=== PATIENT | male | born 1985 | race Caucasian/White ===

== ENCOUNTER 2018-02-14 17:38 | Emergency (ER) | payer SELFPAY ==
[2018-02-14 17:39] VITALS: BP 147/71; PULSE 86; RESP 17; TEMP 37; O2SAT 100; BMI 37.0
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
--- NOTE | 2018-02-14 18:31 | ED.DEP ---
ED Disposition - Plan for ED Patient: Disposition: Home or Assisted Living Chief Complaint: Back Instructions: ED Sprain Strain Lumbar Prescriptions: Hydrocodone Bitart/Apap 5-325 [[place] 5MG-325MG] 1 tablet PO Q6H PRN PRN 3 Days #10 tablet PRN Reason: Pain Naproxen [Naprosyn] 500 mg PO BID PRN PRN #20 tablet PRN Reason: Pain Cyclobenzaprine [Flexeril] 10 mg PO TID PRN #20 tablet PRN Reason: Muscle Spasm Referrals: Vasu Villalobos MD [Primary Care Provider] - 1 Week if not improving
--- NOTE | 2018-02-14 18:35 | DCINST.ED_ITS ---
ED Disposition - Plan for ED Patient: Disposition: Home or Assisted Living Chief Complaint: Back Instructions: ED Sprain Strain Lumbar Prescriptions: Hydrocodone Bitart/Apap 5-325 [[place] 5MG-325MG] 1 tablet PO Q6H PRN PRN 3 Days #10 tablet PRN Reason: Pain Naproxen [Naprosyn] 500 mg PO BID PRN PRN #20 tablet PRN Reason: Pain Cyclobenzaprine [Flexeril] 10 mg PO TID PRN #20 tablet PRN Reason: Muscle Spasm Referrals: Vasu Villalobos MD [Primary Care Provider] - 1 Week if not improving
[2018-02-14] MEDS: Naproxen 500 MG Tablet PO (18:39)
--- OUTSIDE RECORDS SUMMARY | 2018-05-21 07:37 | XMS RPT_ITS ---
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 CPAP @ 7 cm of water with humidification. Mask (per patient preference) optional chin strap (if indicated) , filters, tubing, humidifier and lifetime supplies. CPAP Initiate CPAP @ 7 cm of water with humidification. Mask (per patient preference) optional chin strap (if indicated) , filters, tubing, humidifier and lifetime supplies. albuterol HFA (PROAIR HFA) 90 mcg/actuation inhaler Inhale 2 Puffs as instructed every 4 hours as needed. benzonatate (TESSALON PERLE) 100 mg capsule Take 1 capsule by mouth three times daily as needed. guaiFENesin (MUCINEX) 600 mg 12 hr tablet Take 2 tablets by mouth twice daily. ranitidine 150 mg tablet Take 1 tablet by mouth twice daily. FAMILY HISTORY Problem Relation Age of Onset - Hypertension Father - Hypertension Maternal Grandfather - Heart Maternal Grandfather - Cancer Maternal Grandfather prostate - Diabetes Maternal Grandfather - Hypertension Paternal Grandfather - Diabetes Paternal Grandfather - Heart Maternal Grandmother - Cancer Maternal Grandmother breast - Diabetes Maternal Grandmother - Hypertension Mother - Diabetes Paternal Grandmother Social History Substance Use Topics - Smoking status: Former Smoker Types: Cigarettes Quit date: 02/21/2008 - Smokeless tobacco: Never Used Comment: was smoking rarely - Alcohol use Yes Comment: Rarely Objective Physical Exam Constitutional: He is well-developed, well-nourished, and in no distress. HENT: Right Ear: Tympanic membrane, external ear and ear canal normal. Left Ear: There is swelling and tenderness. Decreased hearing is noted. Cardiovascular: Normal rate. Pulmonary/Chest: Effort normal. Skin: Skin is warm and dry. Rash noted. Nursing note and vitals reviewed. ASSESSMENT/PLAN: 1. Acute swimmer's ear of left side - ICD9: 380.12, ICD10: H60.332 - UIKQZJYA-RVAHKAECX-XZLJJLQYO 3.5 MG-10,000 UNIT/ML-1 % EAR DROPS,SUSP - IBUPROFEN 600 MG TABLET - Follow-up with your PCP in 3-5 days if symptoms have not improved or sooner if symptoms worsen - Discussed red flags and need for immediate medical evaluation if any occur. - Discussed supportive care treatment with fluids, rest and analgesia. - Discussed expected course of illness Kate Murphy APRN.CNP CNOV Observed: 09/19/2017 Status: COMPLETED Source: [place] 3:15 PM [facility] REPOSITORY Office Visit ([facility]) SANTIAGO FARNSWORTH ([id number]) 1985 M Date Time Provider Department 09/19/17 3:15 PM KATE MURPHY ([facility]) [facility] During your visit today, we recorded the following information about you: Temperature Pulse Respiration Blood pressure 97.5 degrees 70/minute 16/minute 122/80 Weight 120.5 kg Kate Murphy APRN.CNP 09/19/2017 4:04 PM Signed Subjective HPI Santiago Menendez Daja is a 32 year old male who presents with left ear pain for the past 2-3 days. He denies any recent URI symptoms. He has been swimming recently. He has taken ibuprofen for pain. He currently rates his pain a 5/10. Review of Systems Constitutional: Negative. Negative for fever. HENT: Positive for ear pain and hearing loss. Negative for congestion, ear discharge and sore throat. Respiratory: Negative for cough. Skin: Negative. BP 122/80 Pulse 70 Temp 36.4 ?C (97.5 ?F) (Tympanic) Resp 16 Wt 120.5 kg (265 lb 9.6 oz) BMI 37.06 kg/m? PAST MEDICAL HISTORY Diagnosis Date - GERD (gastroesophageal reflux disease) - Obesity (BMI 35.0-39.9 without comorbidity) - Obstructive sleep apnea syndrome, mild - Restless legs PAST SURGICAL HISTORY Procedure Laterality Date - NONE ALLERGIES Cinnamon; Tetanus Vaccines And Toxoid MEDICATIONS CPAP Initiate CPAP @ 7 cm of water with humidification. Mask (per patient preference) optional chin strap (if indicated) , filters, tubing, humidifier and lifetime supplies. CPAP Initiate CPAP @ 7 cm of water with humidification. Mask (per patient preference) optional chin strap (if indicated) , filters, tubing, humidifier and lifetime supplies. albuterol HFA (PROAIR HFA) 90 mcg/actuation inhaler Inhale 2 Puffs as instructed every 4 hours as needed. benzonatate (TESSALON PERLE) 100 mg capsule Take 1 capsule by mouth three times daily as needed. guaiFENesin (MUCINEX) 600 mg 12 hr tablet Take 2 tablets by mouth twice daily. ranitidine 150 mg tablet Take 1 tablet by mouth twice daily. FAMILY HISTORY Problem Relation Age of Onset - Hypertension Father - Hypertension Maternal Grandfather - Heart Maternal Grandfather - Cancer Maternal Grandfather prostate - Diabetes Maternal Grandfather - Hypertension Paternal Grandfather - Diabetes Paternal Grandfather - Heart Maternal Grandmother - Cancer Maternal Grandmother breast - Diabetes Maternal Grandmother - Hypertension Mother - Diabetes Paternal Grandmother Social History Substance Use Topics - Smoking status: Former Smoker Types: Cigarettes Quit date: 02/21/2008 - Smokeless tobacco: Never Used Comment: was smoking rarely - Alcohol use Yes Comment: Rarely Objective Physical Exam Constitutional: He is well-developed, well-nourished, and in no distress. HENT: Right Ear: Tympanic membrane, external ear and ear canal normal. Left Ear: There is swelling and tenderness. Decreased hearing is noted. Cardiovascular: Normal rate. Pulmonary/Chest: Effort normal. Skin: Skin is warm and dry. Rash noted. Nursing note and vitals reviewed. ASSESSMENT/PLAN: 1. Acute swimmer's ear of left side - ICD9: 380.12, ICD10: H60.332 - XVOGPUZH-ASTYSBTMW-QAYCDLAWE 3.5 MG-10,000 UNIT/ML-1 % EAR DROPS,SUSP - IBUPROFEN 600 MG TABLET - Follow-up with your PCP in 3-5 days if symptoms have not improved or sooner if symptoms worsen - Discussed red flags and need for immediate medical evaluation if any occur. - Discussed supportive care treatment with fluids, rest and analgesia. - Discussed expected course of illness SUSSY Flood APRN.CNP 09/19/2017 3:31 PM Signed Swimmer's Ear What is swimmer's ear? Swimmer's ear (otitis externa) is an infection of the skin of the cartilaginous portion of the ear canal. Because the ear canal is dark, warm and capable of retaining water, it makes a perfect culture chamber for the growth of bacteria or fungus. The disease starts as a local infection in the ear canal (acute otitis externa) and can spread to cartilage and bone of the ear canal. When this occurs it is called malignant external otitis. Facial nerve paralysis can result when the disease progresses this far. What are the symptoms of swimmer's ear? Pain Ear blockage Foul smelling discharge Hearing loss Itching What conditions cause swimmer's ear? Warm temperatures and high humidity are more likely to promote infection in the ear canal. Trapping of water within the ear canal, trauma to the skin of the ear canal (from cotton swab abuse or hearing aid use), loss of the natural protection of ear wax or exposure to contaminated water may also cause otitis externa. How is swimmer's ear treated? Cleaning the ear canal of accumulated debris is the first priority of treatment. Avoiding water exposure and the use of ear drops usually suffices to stop the infection. Occasionally, systemic antibiotics are necessary. What can I do to prevent swimmer's ear? The use of an alcohol lavage (cleansing wash) in the ear canal after swimming or when hearing aids are removed for the day can significantly reduce the occurrence of skin maceration (tendency of the skin to become worn down, weakened or raw) which leads to infection. The alcohol lavage should consist of one quart of isopropyl (rubbing) alcohol and an ounce (shot glass) of acetic acid (white vinegar). When should I see a specialist? If your infection fails to respond to antibiotic drops, or if you have lost your hearing, you may need to have the ear cleaned and treated by a specialist. Sometimes it is necessary to place a small sponge, called a wick, into the ear canal. This facilitates the delivery of medicated ear drops into the ear when the ear canal is too swollen to permit easy entry. Referring Provider: SELF [200] Allergies As of Date: 09/19/2017 Noted Allergy Reaction CINNAMON 01/28/2012 12 - Shortness of Breath TETANUS VACCINES AND TOXOID 10/06/2013 14 - Other: See Comments Comments: Swelling at injection site Date Reviewed: 09/19/2017 Reviewed by: Kate ([facility]) Katherine - Fully Assessed Reason for Visit: left ear pain [Other] Cmt: x 2-3 days Primary Visit Diagnosis:Acute swimmer's ear of left side [H60.332] Order(s):wynpesjp-kfigxcbgx-ryxmcdnltmsaib (CORTISPORIN) 3.5-10,000-1 mg/mL-unit/mL-% otic suspensionUse 3 Drops in both ears four times daily.Disp: 10 mLRfl: 0 ibuprofen (MOTRIN) 600 mg tabletTake 1 tablet by mouth every 6 hours as needed for Pain.Disp: 30 tabletRfl: 0 Prescriptions as of 09/19/2017 Sig: ORFIUNJV-VTQBUSQCQ-DXPVJLPSW * Use 3 Drops in both ears four* IBUPROFEN 600 MG TABLET Take 1 tablet by mouth every * CPAP Initiate CPAP @ 7 cm of water* CPAP Initiate CPAP @ 7 cm of water* ALBUTEROL SULFATE HFA 90 MCG/* Inhale 2 Puffs as instructed * Patient not taking: Reported on 09/19/2017 BENZONATATE 100 MG CAPSULE Take 1 capsule by mouth three* Patient not taking: Reported on 09/19/2017 GUAIFENESIN ER 600 MG TABLET,* Take 2 tablets by mouth twice* Patient not taking: Reported on 09/19/2017 RANITIDINE 150 MG TABLET Take 1 tablet by mouth twice * Patient not taking: Reported on 09/19/2017 Problem List As Of Date 09/19/2017 Noted Resolved Restless Legs [G25.81] INVALID FOR* Elevated BP [CUH4998] INVALID FOR* Obstructive sleep apnea syndrome, mild [G47.33] Obesity (BMI 35.0-39.9 without comorbidity) [E6* GERD (gastroesophageal reflux disease) [K21.9] Other instructions from your clinician: Swimmer's Ear What is swimmer's ear? Swimmer's ear (otitis externa) is an infection of the skin of the cartilaginous portion of the ear canal. Because the ear canal is dark, warm and capable of retaining water, it makes a perfect culture chamber for the growth of bacteria or fungus. The disease starts as a local infection in the ear canal (acute otitis externa) and can spread to cartilage and bone of the ear canal. When this occurs it is called malignant external otitis. Facial nerve paralysis can result when the disease progresses this far. What are the symptoms of swimmer's ear? Pain Ear blockage Foul smelling discharge Hearing loss Itching What conditions cause swimmer's ear? Warm temperatures and high humidity are more likely to promote infection in the ear canal. Trapping of water within the ear canal, trauma to the skin of the ear canal (from cotton swab abuse or hearing aid use), loss of the natural protection of ear wax or exposure to contaminated water may also cause otitis externa. How is swimmer's ear treated? Cleaning the ear canal of accumulated debris is the first priority of treatment. Avoiding water exposure and the use of ear drops usually suffices to stop the infection. Occasionally, systemic antibiotics are necessary. What can I do to prevent swimmer's ear? The use of an alcohol lavage (cleansing wash) in the ear canal after swimming or when hearing aids are removed for the day can significantly reduce the occurrence of skin maceration (tendency of the skin to become worn down, weakened or raw) which leads to infection. The alcohol lavage should consist of one quart of isopropyl (rubbing) alcohol and an ounce (shot glass) of acetic acid (white vinegar). When should I see a specialist? If your infection fails to respond to antibiotic drops, or if you have lost your hearing, you may need to have the ear cleaned and treated by a specialist. Sometimes it is necessary to place a small sponge, called a wick, into the ear canal. This facilitates the delivery of medicated ear drops into the ear when the ear canal is too swollen to permit easy entry. Prescriptions ordered this encounter Disp Refills Start End SOFAUJPK-UGZWFYYMI-YUQDQKXZF 3.5 MG-* 10 mL 0 09/19/2017 Route: BOTH EARS Sig: Use 3 Drops in both ears four times daily. IBUPROFEN 600 MG TABLET 30 t* 0 09/19/2017 Route: ORAL Sig: Take 1 tablet by mouth every 6 hours as needed for Pain. Letter Text Kate Murphy APRN.[facility] Urgent Care [address] [facility] [address] Dept: [phone] 09/19/2017 Santiago Farnsworth [address] [facility] [address] To Whom it May Concern: This is to certify that Santiago Farnsworth was seen at our office for medical care. Santiago may return to work on 09/20/2017. If you have any questions please feel free to call. Sincerely: Kate Murphy APRN.[facility] Encounter Status:Closed by KATE MURPHY on 09/19/17 CNPN Observed: 06/07/2017 Status: COMPLETED Source: [place] 12:00 AM [facility] RE[facility]IT[facility] SANTIAGO FARNSWORTH ([id number]) 1985 M Date Time Provider Department 06/07/17 RENAY LARA) [facility] During your visit today, we recorded the following information about you: Angelia Stein CMA, MARYCARMEN 06/07/2017 1:09 PM Signed Patient was in today, stated he didn't hand picker the CPAP last time because he changed insurances, he has since changed insurance again ANDamp; gave information to PSR to update. He would like to start the process over. Please advise. JONEL Chamberlain MD 06/07/2017 1:15 PM Signed New order placed for CPAP machine based on pap titration. Will need to send rx to supply company as instructed by insurance. Angelita Calvo LPN 06/07/2017 3:48 PM Signed Spoke with pt gave information provided. Pt voices understanding. States he needs script sent to [facility]. Faxed all information [facility] to [facility]. Asmita Jamal VERGARA 06/07/2017 3:50 PM Signed orders faxed. Allergies As of Date: 06/07/2017 Noted Allergy Reaction CINNAMON 01/28/2012 12 - Shortness of Breath TETANUS VACCINES AND TOXOID 10/06/2013 14 - Other: See Comments Comments: Swelling at injection site Date Reviewed: 12/31/2016 Reviewed by: Jeannette Guadalupe LPN - Fully Assessed Reason for Visit: CPAP [Other] Order(s):CPAPInitiate CPAP @ 7 cm of water with humidification. Mask (per patient preference) optional chin strap (if indicated) , filters, tubing, humidifier and lifetime supplies.Disp: 1 DeviceRfl: 0 Prescriptions as of 06/07/2017 Sig: CPAP Initiate CPAP @ 7 cm of water* CPAP Initiate CPAP @ 7 cm of water* ALBUTEROL SULFATE HFA 90 MCG/* Inhale 2 Puffs as instructed * BENZONATATE 100 MG CAPSULE Take 1 capsule by mouth three* GUAIFENESIN ER 600 MG TABLET,* Take 2 tablets by mouth twice* RANITIDINE 150 MG TABLET Take 1 tablet by mouth twice * Problem List As Of Date 06/07/2017 Noted Resolved Restless Legs [G25.81] INVALID FOR* Elevated BP [AGJ0702] INVALID FOR* Obstructive sleep apnea syndrome, mild [G47.33] Obesity (BMI 35.0-39.9 without comorbidity) [E6* GERD (gastroesophageal reflux disease) [K21.9] Prescriptions ordered this encounter Disp Refills Start End CPAP 1 De* 0 06/07/2017 Class: Print RX Sig: Initiate CPAP @ 7 cm of water with humidification. Mask (per patient preference) optional chin strap (if indicated) , filters, tubing, humidifier and lifetime supplies. Encounter Status:Closed by ANGELITA CALVO LPN on 06/07/17 EMERGENCY REPORT Observed: 05/27/2017 Status: F Source: [place] 5:42 AM [facility] EMERGENCY DEPARTMENT REPORT NAME NUMBER SEX AGE ADMIT DISC TYPE MED.RECORD# DAJA Menendez [id number] M 32 05/09/17 05/09/17 E.R. [id number] ROOM:ER-A DATE OF :1985 PHYSICIAN NO.:[id number] PHYSICIAN NAME:E-Sign: Dr. Genaro Cash D.O. PHYSICIAN:SUNNY RAUSCH FAMILY PHYSICIAN: SUNNY RAUSCH ADDENDUM EMERGENCY DEPARTMENT COURSE AND TREATMENT: X-rays were obtained of the left forearm. No fracture noted. No dislocation. No posterior fat pad at the elbow. Patient does move his elbow good in flexion and extension. Moves the left wrist good in flexion and extension. Good left radial pulse. Has good sensation to light touch all digits of the left hand. Cap refill less than 2 seconds. I am going to place him in an Arash wrap to the left forearm proximally where his tenderness and mild swelling is. I advised him to rest with no heavy lifting or other exertional activities. Prescription for ibuprofen 800 mg 1 p.o. three times daily, dispense #20 with no refill and he is to follow up with his primary care physician Dr. Espinoza in 2-4 days for evaluation. If his symptoms become worse or any other problems develop return here to the emergency department. DIAGNOSIS: Left forearm contusion. D: Genaro Cash DO TD: 23:42 JOB #: [id number] Electronically signed by: E-Sign: Dr. Genaro Cash D.O. 05/16/17 08:33 Transcribed by: janie 05/10/2017 20:23 EMERGENCY ROOM REPORT DAJA SANTIAGO Menendez 1 [facility] EMERGENCY DEPARTMENT REPORT NAME NUMBER SEX AGE ADMIT DISC TYPE MED.RECORD# DAJA Menendez [id number] M 32 05/09/17 05/09/17 E.R. [id number] ROOM:ER-A DATE OF :1985 PHYSICIAN NO.:[id number] PHYSICIAN NAME:E-Sign: Dr. Genaro Cash D.O. PHYSICIAN:SUNNY RAUSCH FAMILY PHYSICIAN: SUNNY RAUSCH EMERGENCY ROOM REPORT DAJA Menendez 2 EMERGENCY REPORT Observed: 05/27/2017 Status: F Source: [place] 5:42 AM [facility] EMERGENCY DEPARTMENT REPORT NAME NUMBER SEX AGE ADMIT DISC TYPE MED.RECORD# DAJA Menendze [id number] M 32 05/09/17 05/09/17 Jorge.RGeorge [id number] [facility] DATE OF :1985 PHYSICIAN NO.:[id number] PHYSICIAN NAME:E-Sign: Dr. Genaro Cash D.O. PHYSICIAN:SUNNY RAUSCH FAMILY PHYSICIAN: SUNNY RAUSCH HISTORY OF PRESENT ILLNESS: This is a 32-year-old white male complaining of left forearm pain and swelling after he fell onto his left forearm this morning around 11 a.m. while at [employer] practice. He said he went to work and throughout the day the left forearm started to become more painful and more swollen so he presents here for an evaluation. He does have a tournament coming up so he wants to make sure he can participate in the tournament. He denies striking his head in the fall. There was no loss of consciousness. He has complained of some right great pain, but he does not want that x-rayed. PAST MEDICAL HISTORY: Denied. ALLERGIES: No known drug allergies. SOCIAL HISTORY: He is not a smoker. Lives at home with his family. Admits to occasional alcohol use. REVIEW OF SYSTEMS: Positive for joint pain, but negative for everything else. The patient denies any chest pain, shortness of breath, cough, sputum, wheezing, abdominal pain, nausea, vomiting, diarrhea, constipation, melena or hematochezia, headaches, numbness, unsteady gait, weakness, neck or back pain, headache, blurred or double vision. Further review of systems negative. PHYSICAL EXAMINATION: The patient is alert and oriented x3. Presently appears in no acute distress. HEENT: Head appears atraumatic. Pupils are equal and reactive to light. Red reflex intact bilaterally. Extraocular muscles intact. No conjunctival injection. Nose: Exhibits no rhinorrhea or epistaxis. Mouth: Mucous membranes are moist. Teeth intact. Neck is supple. Trachea midline. No JVD or lymphadenopathy. No posterior cervical tenderness. Lungs are clear to auscultation in all lung moore. No adventitious sounds are noted. CVS: Heart rate and rhythm is regular without murmur. Abdomen is soft and nontender with normoactive bowel sounds x4 quadrants. No guarding or rigidity. No distention. Back exhibits no midline or paraspinal region tenderness. No increase paraspinal muscle rigidity. Negative Denis's sign. Extremities: Patient is palpably tender with some mild associated swelling to the left proximal forearm over the ulnar distribution. No ecchymosis. No skin abrasion or laceration. Patient has a good left radial pulse. He has good sensation light touch all digits of left hand. Cap refill is less than 2 seconds. He is able to flex and extend the left elbow and can move his left shoulder without any pain. The tenderness and swelling is over the proximal forearm region. No wrist tenderness or swelling. EMERGENCY DEPARTMENT COURSE AND TREATMENT: I am going to obtain an x-ray of the left forearm and then will re-evaluate. D: Genaro Cash DO TD: 22:33 JOB #: [id number] Electronically signed by: E-Sign: Dr. Genaro Cash D.O. 05/16/17 08:32 Transcribed by: janie 05/10/2017 18:53 EMERGENCY ROOM REPORT DAJA Menendez 1 [facility] LT Observed: 05/09/2017 Status: F Source: [facility] 10:42 PM [place] [address] Patient: SANTIAGO FARNSWORTH. Phone#: : [phone] Age: 32 Gender: M Pt. Type: ER Account: [id number] Location: [facility] Ordering: GENARO CASH Exam Date: 05/09/2017/22:32 Family Phys: JAQUI STARKS Charge Code: [id number] Physician: [place] Order #: [id number] DLP Dose#: PROCEDURE: X-RAY FOREARM LT 2 VIEWS COMPARISON: None. INDICATIONS: Left arm pain FINDINGS: BONES: Normal. No significant arthropathy or acute abnormality. SOFT TISSUES: There is mild soft tissue swelling dorsally. EFFUSION: None visible. OTHER: Negative. CONCLUSION: 1. No acute osseous abnormality. Dictated by: Jaquelin Kapoor MD on 05/10/2017 at 8:45 Approved by: Jaquelin Kapoor MD on 05/10/2017 at 8:45 ALLERGIES ALLERGIES DATE TYPE / CODE NAME / CODE REACTION SEVERITY SOURCE 02/14/2018 Drug No Known Unknown [place] Allergy/824819405(S Allergies/F001 [facility] NOMED CT) 214653(RXNORM) Hospital Repository 10/06/2013 Drug TETANUS OTHER: SEE C [place] Class/065511036(SNO VACCINES AND Clinic Main MED CT) TOXOID [place] Repository 01/28/2012 DRUG CINNAMON SHORTNESS OF [place] INGREDI/522740511(S Clinic Main NOMED CT) [place] Repository Miscellaneous No Known Drug Moderate Zia Whitley Allergy/639020186(S Allergies ([facility] NOMED [facility]) Modifier) Hospital (Qualifier Repository Value) ENCOUNTERS ENCOUNTERS ADMIT/DISCHARGE ACCOUNT ADMITTING ENCOUNTER LOCATION SOURCE NUMBER CLASS 03/10/2018/03/11/19 [id number] Ambulatory [address] Repository 02/14/2018/02/15/20 [id number] Emergency [address] ing:ED Repository 11/05/2017/11/06/19 [id number] JENNA Emergency BuildinR Zia Whitley 18 EDWIGE LEON oom: ERBed: A [facility] Repository 09/19/2017/09/21/19 [id number] Ambulatory [address] Repository 05/09/2017/05/10/19 [id number] GENARO CASH Emergency BuildinR Zia Whitley 18 DO oom: ERBed: A [facility] Repository PAYERS PAYERS ENCOUNTER GUARANTOR PAYER SUBSCRIBER SOURCE 02/14/2018 SANTIAGO Menendez Primary [facility] [address]BIG Number: Effective [place] Date:2018-02-14 Repository 82703Wsz: () 11/05/2017 SANTIAGO Menendez Primary SANTIAGO Whitley STARNERDOB: Insurance:RIO STARNERDOB: [facility] [id number] [employer]ALTHCARE COMMERCIAL [id number] [address] Number: [id number] [facility] [id number]: [id number] Tn [phone] Date:Plan Name:U1 () 05/09/2017 SANTIAGO Menendez Primary SANTIAGO Whitley STARNERDOB: Insurance:RIO STARNERDOB: [facility] [id number] [employer]ALTHCARE COMMERCIAL [id number] [facility] [address] [place] [address] Number: [id number] [place], [id number]: [id number] Tn [phone] Date:Plan Name: ()
== END 2018-02-14 18:55 | disposition home or self-care (01) ==
PROVIDERS: Emergency Provider Emergency Medicine; Family Provider Family Medicine; PCP Family Medicine
DX: S29.012A Strain of muscle and tendon of back wall of thorax, initial encounter (principal); S39.012A Strain of muscle, fascia and tendon of lower back, initial encounter; V43.52XA Car driver injured in collision with other type car in traffic accident, initial encounter; Y93.9 Activity, unspecified; Y92.9 Unspecified place or not applicable
CPT/HCPCS: 99282

== ENCOUNTER → 2019-11-20 17:06 | Outpatient (CLI) | payer MEDICAID, SELFPAY | PROVIDERS: PCP Family Medicine; Referring Provider Family Medicine; Visit Provider Family Medicine | DX: Z20.828 Contact with and (suspected) exposure to other viral communicable diseases (principal) | CPT/HCPCS: 87635; C9803; U0003 ==

== ENCOUNTER 2022-09-06 21:08 | Observation (INO) | payer SELFPAY ==
[2022-09-06 21:09] VITALS: BP 176/101; PULSE 97; RESP 18; TEMP 36.9; O2SAT 97; BMI 40.1
--- NOTE | 2022-09-06 21:31 | ED.RN ---
2109 michael rosas rn did a [facility] exam on pt.
--- NOTE | 2022-09-06 21:45 | ED.RN ---
triage nurse concern for stroke like symptoms, rapid neuro negative at this time
--- NOTE | 2022-09-06 22:19 | EKG12_ITS ---
Test Reason : STROKE Blood Pressure : / mmHG Vent. Rate : 087 BPM Atrial Rate : 087 BPM P-R Int : 168 ms QRS Dur : 092 ms QT Int : 368 ms P-R-T Axes : 031 010 017 degrees QTc Int : 442 ms Sinus rhythm with Premature atrial complexes with Aberrant conduction Otherwise normal ECG Confirmed by ELISABETH LEON, SEGUNDO ([id number]), editor greeting card KATERIN CASANOVA ([id number]) on 09/10/2022 1:07:33 PM Referred By: AMBER Confirmed By:LATHA BARBER MD
--- NOTE | 2022-09-06 22:21 | CT_ITS ---
We are attempting to reach an attending provider to discuss findings. An addendum with communication details will be sent when the communication is complete. STUDY: CTA HEAD AND NECK WITH CONTRAST REASON FOR EXAM: Male, 37 years old. Neuro deficit, acute, stroke suspected RADIATION DOSAGE (If Supplied By Facility): CTDIvol = ( 22.35 ) mGy, DLP = ( 747.34 ) mGycm TECHNIQUE: CT angiography was performed with a multi-detector CT scanner. Data acquisition was obtained from the skull base through the vertex following intravenous administration of IV 100mL Isovue-370. MIP images were reconstructed from the axial data set. Post-processing of the angiographic images was performed, with multiplanar reformation and 3D reconstruction. Individualized dose optimization techniques were used for this CT. COMPARISON: No relevant priors. FINDINGS: Normal bilateral petrous carotid arteries. Normal right cavernous carotid artery with a normal supraclinoid bifurcation. Normal left cavernous carotid artery with a normal supraclinoid bifurcation. Normal right A1 segments of the anterior cerebral artery. Normal left A1 segments of the anterior cerebral artery. Normal intact anterior communicating artery (ACOM). Normal bilateral A2 segments of the anterior cerebral arteries. Normal right M1 and M2 segments of the middle cerebral arteries, with a normal M1 bifurcation. Normal left M1 and M2 segments of the middle cerebral arteries, with a normal M1 bifurcation. Normal right posterior communicating artery (PCOM). Normal left posterior communicating artery (PCOM). Normal bilateral vertebral arteries. Normal basilar artery with a normal basilar bifurcation. The visualized bilateral superior cerebellar (SCA) arteries are normal. Normal bilateral P1, P2 and visualized P3 segments of the posterior cerebral arteries. There is no demonstrated aneurysm of the [place]. There is no demonstrated abnormality of the visualized brain. AORTIC ARCH: Normal visualized aortic arch. Normal origins of the brachiocephalic, left common carotid, and left subclavian arteries. RIGHT CAROTID ARTERIES: Normal right common carotid artery (CCA). Normal right common carotid bulb. Normal origin of the right internal carotid (ICA) artery without a hemodynamically significant stenosis. Normal visualized cervical portion of the right internal carotid artery. Normal origin of the right external carotid artery (ECA). LEFT CAROTID ARTERIES: Normal left common carotid artery (CCA). Normal left common carotid bulb. Normal origin of the left internal carotid (ICA) artery without a hemodynamically significant stenosis. Normal visualized cervical portion of the left internal carotid artery. Normal origin of the left external carotid artery (ECA). VERTEBRAL ARTERIES: There is enhancement within the bilateral vertebral arteries with a small left vertebral artery which arises directly from the aortic arch., and a dominant right vertebral artery. CT/STROKE CTA Head AND Neck W/Con IMPRESSION: Normal CTA Head and neck with contrast. Electronically Signed: Oziel Lr MD at 23:16 EDT ,
--- NOTE | 2022-09-06 22:22 | EDS_ITS ---
HPI History of Present Illness Chief Complaint: Neuro S/Sx Narrative Narrative: 37-year-old male presenting for evaluation of numbness and tingling which is started in his left shoulder and upper arm. He states he also has numbness and tingling in the left upper face under his eye but this is chronic secondary to mesh placement. Patient states that his brother was seen last night and had an embolic stroke. He was worried about this today and had nausea and vomiting this morning prior to the onset of the symptoms of numbness and tingling in the shoulder. No history of clotting disorders. He states his mother had a stroke in the past. Patient states he has no significant medical history otherwise. No chest pain or shortness of breath. He did have some nausea and vomiting this morning which resolved. He suspect this is due to worrying about his brother. Patient does not have a headache. He is not dizzy or lightheaded. He has been able to move all 4 extremities without deficit. PFSH PFSH Medical History no medical history Home Medications cyclobenzaprine 10 mg tablet 10 mg PO TID PRN Muscle Spasm ##20 02/14/18 [Rx Last Taken Unknown] naproxen 500 mg tablet 500 mg PO BID PRN PRN Pain #20 tabs 02/14/18 [Rx Last Taken Unknown] Allergy/AdvReac Type Severity Reaction Status Date / Time No Known Allergies Allergy Verified 09/06/22 21:11 Family History Mother Hypertension Mother CVA (cerebral vascular accident) Social History Smoking Status: Never smoker ROS ROS ED Constitutional Constitutional ED: Denies chills, fever(s) or sweats Eyes Eyes: Denies blurry vision or change in vision ENT ENT ED: Denies ear pain or sore throat Cardiovascular Cardiovascular: Denies chest pain, palpitations or racing heartbeat Respiratory/Chest Respiratory/Chest: Denies cough, dyspnea or sputum Gastrointestinal Gastrointestinal: Denies abdominal pain, constipation, diarrhea, nausea or vomiting Genitourinary Genitourinary ED: Denies dysuria, hematuria or urinary frequency Musculoskeletal Musculoskeletal: Denies arthralgias, myalgias or neck pain Integumentary Denies abscess, Abrasions or rash Neurologic Neurologic: Reports paresthesias LUE and other Details: Left face ; Denies headache(s) or weakness Psychiatric Psychiatric: Denies anxiety, depression, suicidal ideation or suicidal thoughts Endocrine Endocrinology: Denies polydipsia or polyuria EXAM Physical Exam Const Vital Signs: 09/06/22 21:09 09/06/22 22:40 09/06/22 22:40 Temperature 98.4 F Temperature Source Temporal Pulse Rate 97 97 Respiratory Rate 18 26 H Blood Pressure 176/101 H 165/99 H Blood Pressure Mean 126 121 Pulse Ox 97 97 Oxygen Delivery Method Room Air Room Air Room Air 09/06/22 22:50 09/06/22 23:50 09/07/22 00:20 Temperature Temperature Source Pulse Rate 76 75 70 Respiratory Rate 16 17 18 Blood Pressure 158/84 H 151/70 H 153/62 H Blood Pressure Mean 108 97 92 Pulse Ox 99 95 97 Oxygen Delivery Method Room Air Room Air Room Air Positive well nourished General Appearance ED: NAD HEENT Reports moist mucous membranes Eyes PERRL General Eye ED: Negative for pale conjunctiva or scleral icterus Resp normal respiratory effort Auscultation: Negative for rales, rhonchi or wheezes GI normal to inspection, nondistended, normoactive bowel sounds Extremity normal to inspection Neuro oriented x3 and CN's II-XII intact bilaterally Sensorium / Orientation: alert Motor Exam: strength 5/5 throughout Psych mental status grossly normal NIHSS NIHSS Initial: 1a Level of Consciousness: 0 1b LOC Questions (Score 2 if aphasic/stupor): 0 1c LOC Commands (Only score 1st attempt): 0 2 Best Gaze (If aphasic, use reflexive mvmts.): 0 3 Visual: 0 4 Facial Palsy: 0 5 Motor Arm Right (UN = amputation/fusion): 0 5 Motor Arm Left: 0 6 Motor Leg Right: 0 6 Motor Leg Left: 0 7 Limb ataxia (Only + if out of proportion): 0 8 Sensory (Aphasia/stupor=0 or 1, coma=2): 1 9 Best Language: 0 10 Dysarthria (mute, coma=2, intubated=UN): 0 11 Extinction and Inattention (only scored if +): 0 Total Score: 1 MDM MDM MDM Narrative Medical decision making narrative: Patient presenting with sensation of numbness in the left shoulder. He also has in the left side of his face under his ILD states this is chronic in the left face because he has a history of mesh implant. Patient reports his brother had a stroke yesterday and he is concerned with his new symptoms. NIH stroke scale score of 1. Blood work was obtained and is otherwise unremarkable. High- sensitivity troponin is 4. EKG is sinus rhythm with a ventricular rate of 87 bpm without sign of ischemic change on my interpretation. This x-ray my interpretation shows no acute process. CT brain and CTA negative for acute findings. Discussed with stroke neurologist who recommended admission for further stroke work-up. Patient amenable to this. Aspirin was given. Patient is mary with hospitalist. Impression: 1. Strokelike symptom Lab Data Labs: Laboratory Results - last 24 hr 09/06/22 09/06/22 21:15 22:34 WBC 12.4 H RBC 5.44 Hgb 15.1 Hct 46.1 MCV 84.7 MCH 27.8 MCHC 32.8 RDW Std Deviation 41.6 RDW Coeff of Lexi 13.5 Plt Count 343 MPV 9.8 Immature Gran % (Auto) 0.400 Neut % (Auto) 59.3 Lymph % (Auto) 32.8 [place] % (Auto) 4.8 Eos % (Auto) 1.9 Baso % (Auto) 0.8 Absolute Neuts (auto) 7.3 Absolute Lymphs (auto) 4.07 Nucleated RBC % 0 PT 13.3 INR 1.0 APTT 31.1 Sodium 140 Potassium 3.8 Chloride 104 Carbon Dioxide 29.0 Anion Gap 7 BUN 18 Creatinine 0.93 Estim Creat Clear Calc 121.68 Est GFR (MDRD) Af Amer 119 Est GFR (MDRD) Non-Af 98 BUN/Creatinine Ratio 19.4 Glucose 103 Calcium 9.0 Troponin I High Sens 4 POC Glucose 104 Radiography Diagnostic Testing: Clinical Impression(s) from Imaging Studies Head/Neck CTA 09/06/22 22:21 IMPRESSION: Normal CTA Head and neck with contrast. Electronically Signed: Oziel Lr MD at 23:16 EDT , ADDENDUM: 09/06/22 4013 IMPRESSION: Normal CTA Head and neck with contrast. N.B. : The above Results were Read Back by Oziel Lr MD to , AA, and understanding confirmed on 09/06/2022 23:50:02 (ET). Electronically Signed: Oziel Lr MD at 23:16 EDT Reading Location ID and State: 994 / [employer] Tel , Service support , ADDENDUM: 09/07/22 0012 IMPRESSION: Normal CTA Head and neck with contrast. N.B. : The above Results were Read Back by Oziel Lr MD to Crow Elliott DO, and understanding confirmed on 09/07/2022 00:05:11 (ET). Electronically Signed: Oziel Lr MD at 23:16 EDT Reading Location ID and State: [place]94 / [employer] Tel , Service support , Brain CT 09/06/22 22:22 IMPRESSION: Negative Brain CT without contrast. Electronically Signed: Oziel Lr MD at 22:37 EDT Reading Location ID and State: 994 / [employer] Tel , Service support , ADDENDUM: 09/06/22 2245 IMPRESSION: Negative Brain CT without contrast. N.B. : The above Results were Read Back by Oziel Lr MD to Crow Elliott DO, and understanding confirmed on 09/06/2022 22:38:19 (ET). Electronically Signed: Oziel Lr MD at 22:37 EDT Reading Location ID and State: [place]94 / [employer] Tel , Service support , Chest X-Ray 09/06/22 23:00 IMPRESSION: Normal x-ray examination of the chest. Electronically Signed: Oziel Lr MD at 23:36 EDT , Discharge Plan Triage Chief Complaint: Neuro S/Sx ED Provider: Crow Elliott Dx/Rx/DC Orders Prescriptions: No Action naproxen 500 MG tablet 500 mg PO BID PRN PRN (Reason: Pain) Qty: 20 0RF cyclobenzaprine 10 MG tablet 10 mg PO TID PRN (Reason: Muscle Spasm) Qty: 20 0RF Primary Care Provider: Adolfo Lara Referrals: Adolfo Lara MD [Primary Care Provider] -
--- NOTE | 2022-09-06 22:22 | CT_ITS ---
We are attempting to reach an attending provider to discuss findings. An addendum with communication details will be sent when the communication is complete. INDICATION: Neuro deficit, acute, stroke suspected EXAMINATION: CT BRAIN - CT Head Stroke Protocol W/O Contrast Injection TECHNIQUE: Multiple axial images were obtained of the head without intravenous contrast. A radiation dose optimization technique was used for this scan. IV Contrast dosage and agent: None. RADIATION DOSAGE (If Supplied By Facility): CTDIvol = ( ) mGy, DLP = ( ) mGycm COMPARISON: FINDINGS: BRAIN PARENCHYMA: No intra- or extra-axial hemorrhage. No evidence of acute infarct. No intracranial mass or mass effect. There is preservation of the vasques/white matter interface. Posterior fossa structures are unremarkable. CSF SPACES: Appropriate for age. No hydrocephalus. Basal cisterns are patent. CALVARIUM, SKULL BASE, PARANASAL SINUSES AND MASTOID AIR CELLS: Clear. No discrete lytic or blastic abnormalities. ORBITS: Both globes, extraocular muscles, optic nerves and retrobulbar fat appear unremarkable. ASPECTS Score for Acute Strokes: 10 CT/STROKE Brain/Head without Cont IMPRESSION: Negative Brain CT without contrast. Electronically Signed: Oziel Lr MD at 22:37 EDT ,
[2022-09-06 22:30] LABS: Absolute Lymphocyte Count 4.07 X10^3/uL (0.83-4.51); Absolute Neutrophil Count 7.3 X10^3/uL (2.0-7.7); Basophil% 0.8 % (0-1); Eosinophil# 0.23 X10^3/uL; Eosinophils% 1.9 % (0-5); Hematocrit 46.1 % (40-54); Hemoglobin 15.1 g/dL (13.0-16.5); Lymphocyte # 4.07 X10^3/ul (0.83-4.51); Lymphocyte % 32.8 % (19-41); Mean Corp Hgb Conc 32.8 g/dL (32-36); Mean Corpuscular Hgb 27.8 pg (27.0-32.0); Mean Corpuscular Volume 84.7 fL (80-94); Mean Platelet Vol. 9.8 fl (6.2-12.0); Monocyte% 4.8 % (0-10); NRBC Flagged by Analyzer 0 % (0-5); Neutrophil # 7.34 X10^3/uL (2.7-7.7); Neutrophil % 59.3 % (47-70); Platelet Count 343 K/mm3 (150-450); RBC Distribution Width CV 13.5 % (11.6-14.6); RBC Distribution Width SD 41.6 fl (35.1-43.9); Red Blood Count 5.44 M/mm3 (4.6-6.2); White Blood Count 12.4 K/mm3 (4.4-11.0)
[2022-09-06 22:40] VITALS: BP 165/99; PULSE 97; RESP 26; O2SAT 97; BMI 40.1
[2022-09-06 22:42] LABS: Prothrombin Time (Protime)PT. 13.3 SECONDS (11.7-14.9)
[2022-09-06 22:43] LABS: Partial Thromboplast Time 31.1 Seconds (24.1-36.2)
[2022-09-06 22:48] LABS: Anion Gap 7 (5-15); BUN 18 mg/dL (7-18); BUN/Creat Ratio 19.4 RATIO (10-20); Chloride 104 mmol/L (98-107); Creatinine, Serum 0.93 mg/dL (0.70-1.30); EST Glomerular Filtration Rate 98 mL/min (>60); Est Glom Filt Rate - Afr Amer 119 mL/min (>60); Estimated Creatinine Clearance 121.68 ml/min; Glucose 103 mg/dL (74-106); Potassium 3.8 mmol/L (3.5-5.1); Sodium Level 140 mmol/L (136-145); Troponin-I HS 4 pg/mL (3.0-78.0)
[2022-09-06 22:50] VITALS: BP 158/84; PULSE 76; RESP 16; O2SAT 99
[2022-09-06 22:51] LABS: Bedside Glucose 104 mg/dL (74-106)
--- NOTE | 2022-09-06 23:00 | RAD_ITS ---
STUDY: X-RAY CHEST REASON FOR EXAM: Male, 37 years old. Neuro deficit, acute, stroke suspected TECHNIQUE: Single AP portable view of the chest. COMPARISON: None. FINDINGS: The lungs are clear and expanded. There is no demonstrated pleural abnormality. Normal size heart. Normal mediastinum and tommie. Normal visualized pulmonary arteries. Normal visualized aortic arch and descending thoracic aorta. Normal visualized thoracic spine. Normal visualized ribs, clavicles, and shoulders. There is no demonstrated abnormality of the visualized soft tissue structures of the upper abdomen. RAD/Chest 1 View IMPRESSION: Normal x-ray examination of the chest. Electronically Signed: Oziel Lr MD at 23:36 EDT ,
[2022-09-06 23:50] VITALS: BP 151/70; PULSE 75; RESP 17; O2SAT 95
[2022-09-07] VITALS (12 sets, daily range): BP systolic 124–153; BP diastolic 62–92; PULSE 63–83; RESP 16–24; TEMP 36.2–36.8; O2SAT 97–100; BMI 39.4
--- NOTE | 2022-09-07 00:11 | HP.PCM.HOS_ITS ---
HPI - General General Date of Admission: 09/07/22 Date of Service: 09/07/22 Chief Complaint: Numbness and tingling HPI Narrative CHRISTINA FARNSWORTH, is a 37 M with a significant history of morbid obesity and facial surgery with mesh under his left eye who presents to the emergency department with numbness and tingling of his left shoulder and of his left arm. His symptoms started about 8 hours before presentation but because the symptoms got progressively worse patient came to the emergency department. He denies any other symptoms. Of note patient's younger brother was transferred from emergency department to [facility] secondary to embolic stroke a day before presentation. Also patient's mother had a stroke about a year ago. In the emergency department patient was evaluated by telemetry neurologist and stroke work-up was recommended. [facility] Medical History no medical history Home Medications cyclobenzaprine 10 mg tablet 10 mg PO TID PRN Muscle Spasm ##20 02/14/18 [Rx Last Taken Unknown] naproxen 500 mg tablet 500 mg PO BID PRN PRN Pain #20 tabs 02/14/18 [Rx Last Taken Unknown] Allergy/AdvReac Type Severity Reaction Status Date / Time No Known Allergies Allergy Verified 09/06/22 21:11 Family History Mother Hypertension Mother CVA (cerebral vascular accident) Surgical History History of facial surgery Social History Smoking Status: Never smoker ROS ROS Narrative Pertinent positives and pertinent negatives as noted in HPI. All other systems were reviewed and are negative Vital Signs Vital Signs Vital Signs: 09/06/22 21:09 09/06/22 22:40 09/06/22 22:40 Temperature 98.4 F Temperature Source Temporal Pulse Rate 97 97 Respiratory Rate 18 26 H Blood Pressure 176/101 H 165/99 H Blood Pressure Mean 126 121 Pulse Ox 97 97 Oxygen Delivery Method Room Air Room Air Room Air 09/06/22 22:50 09/06/22 23:50 Temperature Temperature Source Pulse Rate 76 75 Respiratory Rate 16 17 Blood Pressure 158/84 H 151/70 H Blood Pressure Mean 108 97 Pulse Ox 99 95 Oxygen Delivery Method Room Air Room Air Weight Weight: 134.2 kg Body Mass Index (BMI) 40.1 Physical Exam Narrative Physical exam: General: Well-nourished, well-developed. Head: Normocephalic, atraumatic, no tenderness Eyes: Vision is grossly intact. EOMI ENT, no trauma, moist mucous membranes, no rhinorrhea Neck: Nontender, No thyromegaly. CVS: Regular rate and rhythm. S1-S2 present. No murmur, gallop or rub. Respiratory : clear to auscultation bilaterally, chest wall nontender Abdomen: Soft, nontender, nondistended, normal bowel sounds, no masses : Deferred Back: Nontender, no CVA tenderness, no midline spinal tenderness, deformities, step-offs Extremities: Nontender full range of motion, no trauma Skin: Normal color, no trauma, abrasions Neuro: Alert, oriented, cranial nerves II through XII grossly intact. Sensory changes of right upper arm compared to left upper arm Psychiatry: Normal mood. Normal affect. Not depressed. Not anxious. Results Lab / Micro Data 09/06/22 21:15 09/06/22 21:15 Labs: Laboratory Results - last 24 hr 09/06/22 21:15: WBC 12.4 H, RBC 5.44, Hgb 15.1, Hct 46.1, MCV 84.7, MCH 27.8, MCHC 32.8, RDW Std Deviation 41.6, RDW Coeff of Lexi 13.5, Plt Count 343, MPV 9.8, Immature Gran % (Auto) 0.400, Neut % (Auto) 59.3, Lymph % (Auto) 32.8, [place] % (Auto) 4.8, Eos % (Auto) 1.9, Baso % (Auto) 0.8, Absolute Neuts (auto) 7.3, Absolute Lymphs (auto) 4.07, Nucleated RBC % 0, PT 13.3, INR 1.0, APTT 31.1, S odium 140, Potassium 3.8, Chloride 104, Carbon Dioxide 29.0, Anion Gap 7, BUN 18, Creatinine 0.93, Estim Creat Clear Calc 121.68, Est GFR (MDRD) Af Amer 119, Est GFR (MDRD) Non-Af 98, BUN/Creatinine Ratio 19.4, Glucose 103, Calcium 9.0, Troponin I High Sens 4 09/06/22 22:34: POC Glucose 104 Radiology Impression Head/Neck CTA 09/06/22 22:21 IMPRESSION: Normal CTA Head and neck with contrast. Electronically Signed: Oziel Lr MD at 23:16 EDT Reading Location ID and State: 994 / [employer] Tel , Service support , ADDENDUM: 09/06/22 2357 IMPRESSION: Normal CTA Head and neck with contrast. N.B. : The above Results were Read Back by Oziel Lr MD to , AA, and understanding confirmed on 09/06/2022 23:50:02 (ET). Electronically Signed: Oziel Lr MD at 23:16 EDT Reading Location ID and State: 994 / [employer] Tel , Service support , Brain CT 09/06/22 22:22 IMPRESSION: Negative Brain CT without contrast. Electronically Signed: Oziel Lr MD at 22:37 EDT Reading Location ID and State: 994 / [employer] Tel , Service support , ADDENDUM: 09/06/22 2245 IMPRESSION: Negative Brain CT without contrast. N.B. : The above Results were Read Back by Oziel Lr MD to Crow Elliott DO, and understanding confirmed on 09/06/2022 22:38:19 (ET). Electronically Signed: Oziel Lr MD at 22:37 EDT Reading Location ID and State: [id number] / [employer] Tel , Service support , Chest X-Ray 09/06/22 23:00 IMPRESSION: Normal x-ray examination of the chest. Electronically Signed: Oziel Lr MD at 23:36 EDT , Assessment & Plan Assessment/Plan (1) Stroke-like symptoms: PLAN: Plan Strokelike symptoms Serial NINDS NIH Scale ordered Impression of head any neck CT/CTA by radiology:Negative Brain CT without contrast/ Normal CTA head and neck with contrast Upon my personal head CT image review: I agree with radiologist interpretation Occupational Therapy, physical therapy and speech therapy. Telemetry neurologist recommendations ordered. Lipid profile and A1c ordered. N.p.o. until bedside swallow eval. Daily aspirin. High intensity statin Permissive hypertension. Control blood pressure with labetalol for systolic blood pressure of more than 220 or diastolic blood pressure of more than 120. MRI of head; brain; and neck. Echocardiogram ordered. Charges/Coding Visit Charges Inpatient E&M: 92349 Init Hosp L2
--- NOTE | 2022-09-07 05:43 | ECHOD_ITS ---
Reason For Study: TIA/CVA Procedure This was a 2D Doppler, Color Flow transthoracic echocardiogram. Exam performed portable in patient room. Left Ventricle Normal LV size. The estimated ejection fraction is 60 %. No evidence for diastolic dysfunction. No regional wall motion abnormalities noted. Right Ventricle Normal RV size. Normal systolic function. Atria Normal left atrium. Normal right atrium. No doppler evidence for ASD. Bubble contrast study negative for right to left interatrial shunt. Mitral Valve There is no mitral valve stenosis. No mitral valve insufficiency. Tricuspid Valve There is no tricuspid stenosis. Unable to estimate RV systolic pressure due to insufficient tricuspid regurgitant envelope. Trivial tricuspid valve insufficiency. Aortic Valve Trisinus/trileaflet aortic valve. There is no aortic stenosis. No aortic valve insufficiency. Pulmonic Valve There is no pulmonic valvular stenosis. Trivial pulmonic valve insufficiency. Great Vessels Normal aortic root. Pericardium/Pleural No pericardial effusion. MMode/2D Measurements & Calculations LVIDd: 4.6 cm IVSd: 1.0 cm Ao root diam: 3.4 cm LVIDs: 3.1 cm LVPWd: 0.95 cm RVDd: 4.5 cm FS: 32.3 % LAV(MOD-bp): 55.6 ml LVAd ap4: 29.8 cm2 SV(MOD-sp4): 48.0 ml LAV(MOD-bp) Indexed: 21.8 ml/m2 LVLd ap4: 8.7 cm LAV(MOD-sp2): 63.6 ml EDV(MOD-sp4): 81.8 ml LAV(MOD-sp4): 47.2 ml EDV(sp4-el): 86.5 ml LVAs ap4: 17.0 cm2 LVLs ap4: 7.3 cm ESV(MOD-sp4): 33.8 ml ESV(sp4-el): 33.9 ml EF(MOD-sp4): 58.7 % EF(sp4-el): 60.7 % SV(sp4-el): 52.5 ml LA A4 area: 18.6 cm2 LA dimension(2D): 4.1 cm RA A4 area: 14.5 cm2 TAPSE: 2.3 cm Time Measurements MV dec time: 0.19 sec Doppler Measurements & Calculations MV E max colt: 71.0 cm/sec Lat Peak E' Colt: 10.3 cm/sec Med Peak E' Colt: 6.0 cm/sec MV A max colt: 69.6 cm/sec E/E' lat: 6.9 E/E' med: 11.8 MV E/A: 1.0 Ao V2 max: 110.1 cm/sec LV V1 max: 103.8 cm/sec MV dec slope: 370.2 cm/sec2 Ao max P.9 mmHg LV V1 max P.3 mmHg Ao V2 mean: 85.0 cm/sec Ao mean P.1 mmHg Ao V2 VTI: 25.2 cm PA V2 max: 92.9 cm/sec TR max colt: 194.5 cm/sec TR max P.1 mmHg ECHO/Echo Complete Interpretation Summary The estimated ejection fraction is 60 %. No evidence for diastolic dysfunction. Ordering Physician: Art Muñiz Referring Physician: Sohail Lara Performed By: Latosha Coronel, SADIQ, RVT
--- NOTE | 2022-09-07 05:43 | MRI_ITS ---
STUDY: MRI BRAIN WITHOUT CONTRAST REASON FOR EXAM: Male, 37 years old. CVA left facial, shoulder and elbow numbness TECHNIQUE: Standardized multiplanar fat and water weighted pulse sequences were obtained. COMPARISON: CT September 06, 2022 FINDINGS: Normal size of the ventricles and extra-axial spaces for the patient''s age. Normal white matter tracts of the supratentorial brain. There is no evidence for recent intracranial ischemia or other cause of cytotoxic edema on diffusion weighted imaging (DWI). Normal T2* images of the brain without demonstrated susceptibility artifact. There is no demonstrated hemosiderin stain. Normal bilateral basal ganglia. Normal thalami. There is no extra-axial fluid accumulation. Normal flow voids within the major intracranial circulation suggesting patency by spin echo criteria. Normal sella turcica, pituitary gland, infundibular stalk, optic chiasm and hypothalamus. Normal tectal plate and pineal gland. Normal midbrain, alexei and medulla. Normal cerebellum. Normal basal cisterns. Normal bilateral temporal bones. Normal bilateral internal auditory canals. No demonstrated orbital abnormality, within the constraints of a routine brain study. Normal visualized paranasal sinuses. Normal calvarium and skull base. Normal visualized soft tissue structures. Normal visualized upper cervical spine. MRI/Brain without Contrast IMPRESSION: Normal unenhanced MRI of the brain. Electronically Signed: Emiliano Mar MD at 14:00 EDT ,
[2022-09-07 06:38] LABS: Absolute Lymphocyte Count 4.02 X10^3/uL (0.83-4.51); Absolute Neutrophil Count 6.3 X10^3/uL (2.0-7.7); Basophil% 0.9 % (0-1); Eosinophil# 0.27 X10^3/uL; Eosinophils% 2.4 % (0-5); Hematocrit 44.8 % (40-54); Hemoglobin 14.7 g/dL (13.0-16.5); Lymphocyte # 4.02 X10^3/ul (0.83-4.51); Lymphocyte % 35.6 % (19-41); Mean Corp Hgb Conc 32.8 g/dL (32-36); Mean Corpuscular Hgb 28.1 pg (27.0-32.0); Mean Corpuscular Volume 85.7 fL (80-94); Mean Platelet Vol. 9.6 fl (6.2-12.0); Monocyte# 0.54 X10^3/uL; Monocyte% 4.8 % (0-10); NRBC Flagged by Analyzer 0 % (0-5); Neutrophil % 55.7 % (47-70); Platelet Count 309 K/mm3 (150-450); RBC Distribution Width CV 13.3 % (11.6-14.6); RBC Distribution Width SD 41.7 fl (35.1-43.9); Red Blood Count 5.23 M/mm3 (4.6-6.2); White Blood Count 11.3 K/mm3 (4.4-11.0)
[2022-09-07 07:27] LABS: Anion Gap 4 (5-15); BUN 16 mg/dL (7-18); BUN/Creat Ratio 17.4 RATIO (10-20); Calcium,Total 8.7 mg/dL (8.5-10.1); Chloride 104 mmol/L (98-107); Cholesterol 129 mg/dL (200); Creatinine, Serum 0.92 mg/dL (0.70-1.30); EST Glomerular Filtration Rate 100 mL/min (>60); Est Glom Filt Rate - Afr Amer 121 mL/min (>60); Estimated Creatinine Clearance 126.65 ml/min; Glucose 95 mg/dL (74-106); High Density Lipoprotein 42 mg/dL; Sodium Level 137 mmol/L (136-145); Triglycerides 92 mg/dL; Very Low Density Lipoprotein 18 mg/dL (5-40)
[2022-09-07 08:11] LABS: Hemoglobin A1c 5.6 % (3.8-5.6)
[2022-09-07] MEDS: Aspirin 81 MG TAB.CHEW PO (09:52)
[2022-09-07] MEDS: Ondansetron 4 MG/2 ML Vial IV (12:43)
--- NOTE | 2022-09-07 13:19 | CASEMGMT ---
SW met with patient and his significant other due to self pay status. Patient's said that they cannot apply for insurance with their jobs until January due to the waiting period since they are new. Patient has not been on any expensive medications. Patient does see a PCP. SW offered Medicaid application if they felt they might qualify. They did take the application, but they do not think they would qualify. Patient and his denied any further needs. Denise Ellison MSW JEWELS
[2022-09-07] MEDS: Acetaminophen 325 MG Tablet 650 MG PO (15:22)
[2022-09-07] MEDS: 0.9% Saline Lock 10 ML Syringe IV (15:23)
--- NOTE | 2022-09-07 17:10 | DCINST_ITS ---
Discharge Instructions Diet Discharge Diet: No restrictions Activity Discharge Activity: Return to Normal Activity Follow Up Care Test Results: Test results from this visit will be discussed in further detail at your follow- up appointment, if applicable. Discharge Plan Admission Admit Date/Time: 09/07/22 05:32 Primary Reason for Your Visit: Mid arm tingling Attending Provider: Amy Ritchie Primary Care Provider: Adolfo Lara Consulting Providers: Art Muñiz Instructions Patient Instructions: 5 Steps for Eating Healthier, DASH Plan Eat Heart Healthy Food Additional Instructions / Restrictions: DISCHARGE INSTRUCTIONS PLEASE READ *Please take this with you to your next doctors appointment* -You came in for some tingling from your left shoulder down to your left elbow and had a work-up for stroke which was negative -Would recommend a hypercoagulable work-up through primary care physician's office given your family history -Please call your primary care provider's office upon discharge to schedule a hospital follow up within 1 week. -For any concerning signs or symptoms please call 911 or proceed to the nearest emergency department Discharge Orders/Prescriptions Prescriptions: Discontinued naproxen 500 MG tablet 500 mg PO BID PRN PRN (Reason: Pain) Qty: 20 0RF cyclobenzaprine 10 MG tablet 10 mg PO TID PRN (Reason: Muscle Spasm) Qty: 20 0RF Referrals / Follow Up: Adolfo Lara MD [Primary Care Provider] - Within 1 Week Disposition Disposition (needs filled in before D/C Order can be placed): Home, Self Care
--- NOTE | 2022-09-07 17:14 | DS.PCM_ITS ---
Providers Date of Admission: 09/07/22 Date of Discharge: 09/07/22 Primary Care Physician: Dr. Adolfo Lara MD Reason For Visit: NUMBNESS AND TINGLING Diagnosis Discharge Diagnosis (1) Tingling of left upper extremity: Status: Acute Code(s): R20.2 - Paresthesia of skin Hospital Course Procedures - (mri, echo) Summary of Care Provided Minutes Spent on Discharge: 20 Hospital Course: Per HPI: CHRISTINA FARNSWORTH, is a 37 M with a significant history of morbid obesity and facial surgery with mesh under his left eye who presents to the emergency department with numbness and tingling of his left shoulder and of his left arm. His symptoms started about 8 hours before presentation but because the symptoms got progressively worse patient came to the emergency department. He denies any other symptoms. Of note patient's younger brother was transferred from emergency department to [facility] secondary to embolic stroke a day before presentation. Also patient's mother had a stroke about a year ago. In the emergency department patient was evaluated by telemetry neurologist and stroke work-up was recommended. INTERIM HISTORY: Patient had negative MRI, CTA, echocardiogram, endorse that his symptoms were from shoulder down to elbow and had completely resolved. Discussed could be neck, could be stress. Given atypical symptoms that have completely resolved and negative work-up discussed with patient about DC to follow-up with primary care physician he was comfortable with this plan. Discussed with his brother having an embolic stroke in the past 48 hours he would benefit from hypercoagulable work-up through his primary care physician's office. He verbalizes understanding and no complaints. Denied any further numbness, tingling, weakness, slurred speech. Neuro exam with no focal deficits appreciated, 5 out of 5 strength in upper and lower extremities, symmetrical f acial movements, finger-nose without difficulty. Physical Exam Narrative General: Alert, oriented, no apparent distress HEENT: Atraumatic, normocephalic Eyes: Anicteric, normal conjunctiva, extraocular movements grossly intact, glasses in place Neck: Supple Respiratory: Clear to auscultation bilaterally, normal respiratory effort Cardiovascular: Regular rate and rhythm GI: Soft, nontender, nondistended Extremities: No edema Musculoskeletal: Strength 5 out of 5 in right upper extremity, 5 out of 5 left upper extremity, 5 out of 5 right lower extremity, 5 out of 5 left lower extremity Neuro: No overt focal neurological deficits, cranial nerves II through XII intact, [id number] without significant difficulty bilaterally Skin: No rashes appreciated Psych: Cooperative Weight / BMI Weight Weight: 135.5 kg Body Mass Index (BMI) 39.4 ABG / Lab / Microbiology Data 09/07/22 06:26 09/07/22 06:26 Laboratory: Laboratory Results - last 24 hr 09/06/22 21:15: WBC 12.4 H, RBC 5.44, Hgb 15.1, Hct 46.1, MCV 84.7, MCH 27.8, MCHC 32.8, RDW Std Deviation 41.6, RDW Coeff of Lexi 13.5, Plt Count 343, MPV 9.8, Immature Gran % (Auto) 0.400, Neut % (Auto) 59.3, Lymph % (Auto) 32.8, Pope % (Auto) 4.8, Eos % (Auto) 1.9, Baso % (Auto) 0.8, Absolute Neuts (auto) 7.3, Absolute Lymphs (auto) 4.07, Nucleated RBC % 0, PT 13.3, INR 1.0, APTT 31.1, Sodium 140, Potassium 3.8, Chloride 104, Carbon Dioxide 29.0, Anion Gap 7, BUN 18, Creatinine 0.93, Estim Creat Clear Calc 121.68, Est GFR (MDRD) Af Amer 119, Est GFR (MDRD) Non-Af 98, BUN/Creatinine Ratio 19.4, Glucose 103, Calcium 9.0, Troponin I High Sens 4 09/06/22 22:34: POC Glucose 104 09/07/22 06:26: WBC 11.3 H, RBC 5.23, Hgb 14.7, Hct 44.8, MCV 85.7, MCH 28.1, MCHC 32.8, RDW Std Deviation 41.7, RDW Coeff of Lexi 13.3, Plt Count 309, MPV 9.6, Immature Gran % (Auto) 0.600, Neut % (Auto) 55.7, Lymph % (Auto) 35.6, Pope % (Auto) 4.8, Eos % (Auto) 2.4, Baso % (Auto) 0.9, Absolute Neuts (auto) 6.3, Absolute Lymphs (auto) 4.02, Nucleated RBC % 0, Sodium 137, Potassium 4.0, Chloride 104, Carbon Dioxide 29.0, Anion Gap 4 L, BUN 16, Creatinine 0.92, Estim Creat Clear Calc 126.65, Est GFR (MDRD) Af Amer 121, Est GFR (MDRD) Non-Af 100, BUN/Creatinine Ratio 17.4, Glucose 95, Hemoglobin A1c 5.6, Calcium 8.7, Triglycerides 92, Cholesterol 129, LDL Cholesterol 69, VLDL Cholesterol 18, HDL Cholesterol 42 Radiography Diagnostic Testing: Radiology Impression Head/Neck CTA 09/06/22 22:21 IMPRESSION: Normal CTA Head and neck with contrast. Electronically Signed: Oziel Lr MD at 23:16 EDT , ADDENDUM: 09/06/22 2357 IMPRESSION: Normal CTA Head and neck with contrast. N.B. : The above Results were Read Back by Oziel Lr MD to , AA, and understanding confirmed on 09/06/2022 23:50:02 (ET). Electronically Signed: Oziel Lr MD at 23:16 EDT , ADDENDUM: 09/07/22 0012 IMPRESSION: Normal CTA Head and neck with contrast. N.B. : The above Results were Read Back by Oziel Lr MD to Crow Elliott DO, and understanding confirmed on 09/07/2022 00:05:11 (ET). Electronically Signed: Oziel Lr MD at 23:16 EDT , Brain CT 09/06/22 22:22 IMPRESSION: Negative Brain CT without contrast. Electronically Signed: Oziel Lr MD at 22:37 EDT , ADDENDUM: 09/06/22 0964 IMPRESSION: Negative Brain CT without contrast. N.B. : The above Results were Read Back by Oziel Lr MD to Crow Elliott DO, and understanding confirmed on 09/06/2022 22:38:19 (ET). Electronically Signed: Oziel Lr MD at 22:37 EDT , Chest X-Ray 09/06/22 23:00 IMPRESSION: Normal x-ray examination of the chest. Electronically Signed: Oziel Lr MD at 23:36 EDT , Brain MRI 09/07/22 05:43 IMPRESSION: Normal unenhanced MRI of the brain. Electronically Signed: Emiliano Mar MD at 14:00 EDT , Echocardiogram 09/07/22 05:43 Interpretation Summary The estimated ejection fraction is 60 %. No evidence for diastolic dysfunction. Ordering Physician: Art Muñiz Referring Physician: Sohail Lara Performed By: Latosha Coronel, RENACS, RVT D/C Instructions Discharge Diet: No restrictions Meaningful Use Info Meaningful Use Diagnoses (Choose all that apply): None applicable Discharge Plan Admission Admit Date/Time: 09/07/22 05:32 Primary Reason for Your Visit: Mid arm tingling Attending Provider: Amy Ritchie Primary Care Provider: Adolfo Lara Consulting Providers: Art Muñiz Instructions Patient Instructions: 5 Steps for Eating Healthier, DASH Plan Eat Heart Healthy Food Additional Instructions / Restrictions: DISCHARGE INSTRUCTIONS PLEASE READ *Please take this with you to your next doctors appointment* -You came in for some tingling from your left shoulder down to your left elbow and had a work-up for stroke which was negative -Would recommend a hypercoagulable work-up through primary care physician's office given your family history -Please call your primary care provider's office upon discharge to schedule a hospital follow up within 1 week. -For any concerning signs or symptoms please call 911 or proceed to the nearest emergency department Discharge Orders/Prescriptions Prescriptions: Discontinued naproxen 500 MG tablet 500 mg PO BID PRN PRN (Reason: Pain) Qty: 20 0RF cyclobenzaprine 10 MG tablet 10 mg PO TID PRN (Reason: Muscle Spasm) Qty: 20 0RF Referrals / Follow Up: Adolfo Lara MD [Primary Care Provider] - Within 1 Week Disposition Disposition (needs filled in before D/C Order can be placed): Home, Self Care Charges/Coding Visit Charges Inpatient E&M: 70464 Disch Hosp
== END 2022-09-07 18:28 | disposition home or self-care (01) ==
LOC: ED 22:51 → PCU 09-07 05:43
PROVIDERS: Admitting Provider Hospitalist; Emergency Provider Student in an Organized Health Care Education/Training Program; PCP Family Medicine; Visit Provider Internal Medicine
DX: R20.2 Paresthesia of skin (principal); E66.01 Morbid (severe) obesity due to excess calories; Z68.41 Body mass index [BMI] 40.0-44.9, adult; R29.701 NIHSS score 1
CPT/HCPCS: 70450; 70496; 70498; 70551; 71045; 80048; 80061; 82962; 83036; 84484; 85025; 85610; 85730; 93005; 93306; 96374; 99221; 99285; Q9967; A4216; G0378; J2405

== ENCOUNTER 2022-12-12 14:30 | Emergency (ER) | payer SELFPAY ==
[2022-12-12 14:31] VITALS: BP 168/95; PULSE 92; RESP 14; TEMP 36.4; O2SAT 99; BMI 37.6
--- NOTE | 2022-12-12 15:40 | CT_ITS ---
INDICATION: neck trauma EXAMINATION: CT CERVICAL SPINE - CT Spine Cervical W/O Contrast Injection TECHNIQUE: Helically acquired images were obtained of the cervical spine. 2D reformatted images were reviewed. A radiation dose optimization technique was used for this scan. IV Contrast dosage and agent: None. RADIATION DOSAGE (If Supplied By Facility): CTDIvol = ( 30.02 ) mGy, DLP = ( 702.99 ) mGycm COMPARISON: No relevant prior comparison study available FINDINGS: VERTEBRAE: No fracture or traumatic subluxation. No discrete lytic or blastic abnormality. Normal alignment. Normal craniocervical junction and cervicothoracic junction. DISCS and SPINAL CANAL: Disc heights are preserved. No critical stenosis. NECK SOFT TISSUES: No prevertebral soft tissue swelling. There is no cervical adenopathy. LUNG APICES: Clear. CT/Spine Cervical without Contras IMPRESSION: No evidence of acute cervical spinal fracture or traumatic malalignment. Electronically Signed: Juaquin Coelho MD at 16:25 EDT ,
--- NOTE | 2022-12-12 15:40 | EX.ED.GENINJ ---
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 Informant: patient and spouse/S.O. Onset/Context/Timing Onset: Yesterday Mechanism/Context: Blunt Injury Current Severity: Moderate Maximum Severity: Moderate Associated Symptoms Associated Symptoms: Negative for Parasthesias, Weakness, Loss of function, Inability to ambulate, Loss of consciousness or Amnesia Narrative Narrative: 37-year-old male no significant past medical history. 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 He did a somersault and landed awkwardly on his posterior neck. Complaining of pain to his lower back and left paracervical area. Prior history of neck injury. Says he has no loss of strength or sensation in his arms. Questionable decreased sensation to his left lower medial leg. Prior similar symptoms: No Recent Illness/Hospitalization: No PFSH PFSH Home Medications metaxalone 800 mg tablet 800 mg PO TID PRN muscle pain 7 days #21 tabs 12/12/22 [Rx Last Taken Unknown] Allergy/AdvReac Type Severity Reaction Status Date / Time No Known Allergies Allergy Verified 12/12/22 14:31 Family History Mother Hypertension Mother CVA (cerebral vascular accident) Surgical History History of facial surgery Social History Smoking Status: Never smoker ROS ROS ED ROS Narrative Denies. Review of Systems ROS Unobtainable: Denies due to encephalopathy Constitutional Constitutional ED: Denies chills or fever(s) Eyes Eyes: Denies blurry vision ENT ENT ED: Denies ear pain Cardiovascular Cardiovascular: Denies chest pain Respiratory/Chest Respiratory/Chest: Denies cough or dyspnea Gastrointestinal Gastrointestinal: Denies abdominal pain Genitourinary Genitourinary ED: Denies dysuria or hematuria Musculoskeletal Musculoskeletal: Reports neck pain; Denies arthralgias, back pain or myalgias Integumentary Denies abscess Psychiatric Psychiatric: Denies anxiety Endocrine Endocrinology: Denies cold intolerance Hematologic/Lymphatic Hematologic/Lymphatic: Denies easy bleeding or easy bruising Allergic/Immunologic Allergic/Immunologic ED: Denies mouth swelling, tongue swelling or urticaria EXAM Physical Exam Narrative Exam Narrative: 37-year-old male no acute distress. Sitting upright in bed. Significant other at bedside. Vital signs stable afebrile. HEENT exam unremarkable atraumatic. Neck is lower C-spine tenderness in the midline and primarily left paracervical. Trachea is midline. Lungs clear to auscultation. Heart regular rhythm no murmur. Chest wall and ribs nontender. Abdomen soft nontender. Back otherwise is nontender. Moving all 4 extremities. Normal asphalt smoother strength. Normal dorsi plantarflexion. 5 out of 5 strength. Normal sensation both upper and lower extremities. Neurologic exam normal. GCS 15. Const Vital Signs: 12/12/22 14:31 Temperature 97.6 F L Temperature Source Temporal Pulse Rate 92 Respiratory Rate 14 Blood Pressure 168/95 H Blood Pressure Mean 119 Pulse Ox 99 Oxygen Delivery Method Room Air Positive well nourished and well developed; Negative for cachectic, contractures or unkempt General Appearance ED: well developed and NAD; Negative for unkempt, cachectic or contractures Nutritional Appearance: Negative for cachectic HEENT atraumatic; Negative for trauma or tenderness Eyes PERRL and EOMs intact bilaterally Neck full ROM Neck Narrative: Lower neck midline tenderness and also left paracervical soft tissue tenderness. General: tenderness Chest Wall inspection of chest normal and palpation of chest normal Breast/Axilla Inspection: Negative for other Resp normal respiratory effort and clear to auscultation bilaterally Effort and Inspection: Negative for pain with movement Auscultation: Negative for rales, rhonchi or wheezes Cardio regular rhythm, S1 normal heart sound, S2 normal heart sound and no murmurs Jugular Venous Distention: Negative for other Palpation: Negative for palpable S3 or palpable S4 Rate: regular rate GI normal to inspection, nondistended, normoactive bowel sounds, non-tender and no masses Inspection: Negative for abdominal distention Auscultation: normoactive bowel sounds Palpation: soft; Negative for tender or guarding Bladder / Kidney Exam: No other Back/Spine normal to inspection and no thoracic nor lumbar tenderness General Back: Negative for CVA tenderness Thoracic Spine / Upper Back: Negative for thoracic spinal tenderness Lumbar Spine / Lower Back: straight leg raise negative bilaterally Extremity full ROM General Extremety ED: Negative for deformity, edema or tenderness General Extremity: Negative for deformity or edema Neuro oriented x3, CN's II-XII intact bilaterally, moves all extremities, no focal motor deficits and no sensory deficits noted Sensorium / Orientation: alert, oriented to person, oriented to place and oriented to time; Negative for orientation impaired, lethargic or stuporous Motor Exam: strength 5/5 throughout; Negative for strength abnormal or muscle tone abnormal Psych mental status grossly normal and thought process normal Appearance: Negative for unkempt Attitude: No agitated Mood & Affect: Negative for depressed, anxious or tearful Skin no rashes or lesions noted, no wounds, skin turgor normal and no jaundice General Skin Exam: Negative for other Rashes: No rashes noted Trauma: Negative for abrasion Wounds: Negative for wounds noted MDM MDM MDM Narrative Medical decision making narrative: 37-year-old male injured his neck last night at [employer] practice. He does have midline tenderness primarily paracervical tenderness. A CT is being obtained. Neurologically he is intact. Repeat exam is doing well at 4:47 PM. Treated as a neck strain. Motrin and Tylenol. Ice. Follow-up as needed. History & Record Review Discussion w/independent historian: Patient and Significant other Radiography Diagnostic Testing: Clinical Impression(s) from Imaging Studies Cervical Spine CT 12/12/22 15:40 IMPRESSION: No evidence of acute cervical spinal fracture or traumatic malalignment. Electronically Signed: Juaquin Coelho MD at 16:25 EDT Reading Location ID and State: [address] [place] [address] Tel , Service support , See the cervical spine showed no fracture. Read by the radiologist. Reviewed by me. Discharge Plan Triage Chief Complaint: Other, Pain/Inj ED Provider: Malik Merino Dx/Rx/DC Orders Clinical Impression: Neck muscle strain Instructions: ED Neck Sprain or Strain Prescriptions: New metaxalone 800 mg tablet 800 mg PO TID PRN (Reason: muscle pain) 7 Days Qty: 21 0RF Primary Care Provider: Adolfo Lara Referrals: Adolfo Lara MD [Primary Care Provider] - As Needed Activity Restrictions/Additional Instructions: CAT scan was read as normal. Hot shower, warm bath, massage. Motrin for pain and swelling and Tylenol. This should progressively improve. Disposition Disposition: Home, Self Care
--- NOTE | 2022-12-12 17:17 | ED.RN ---
Addendum entered by Ya Escudero 12/12/22 17:23: PT STATING PAIN TO LEFT NECK IS NOT ANY WORSE OR BETTER. Original Note: PT WAS D/C, WENT TO GET INTO CAR AND PAIN TO LEFT NECK GOT WORSE, NUMBNESS TO LEFT ARM STARTED. SAYS LEFT FOOT HAS BEEN NUMB ALL DAY. PT REQUESTING TO BE SEEN AGAIN. DR. ASTORGA UPDATED. BP 158/66 P86 O299%, TEMP 98.2TA. STATES HE HAS ALSO HAD A SLIGHT HEADACHE ALL DAY.
[2022-12-12 17:19] VITALS: BP 158/66; PULSE 86; RESP 18; O2SAT 99
== END 2022-12-12 17:02 | disposition home or self-care (01) ==
PROVIDERS: Emergency Provider Emergency Medicine; PCP Family Medicine; Visit Provider Emergency Medicine
DX: S16.1XXA Strain of muscle, fascia and tendon at neck level, initial encounter (principal); X58.XXXA Exposure to other specified factors, initial encounter; Y93.72 Activity, wrestling; Y92.89 Other specified places as the place of occurrence of the external cause
CPT/HCPCS: 72125; 99283

== ENCOUNTER 2023-11-29 12:12 | Emergency (ER) | payer MEDICAID, SELFPAY ==
[2023-11-29 12:13] VITALS: BP 165/86; PULSE 91; RESP 16; TEMP 36.6; O2SAT 97; BMI 41.0
--- NOTE | 2023-11-29 13:37 | ED.RN ---
PT C/O SUDDEN ONSET OF DIZZINESS THIS MORNING WHILE SHOPPING. IT FELT LIKE SOMEONE COULD PUSH ME DOWN WITH A FEATHER STATES DIZZINESS HAS IMPROVED SINCE ARRIVAL BUT IS NOT COMPLETELY RESOLVED. DENIES OTHER SYMPTOMS.
--- NOTE | 2023-11-29 14:02 | EDS_ITS ---
HPI History of Present Illness Chief Complaint: Dizziness Informant: patient Onset/Context/Timing Onset: Today Context: Gradual Onset Timing: Intermittent Quality: Spinning Location: Head Worsened by: Standing, walking Relieved by: Sitting down Narrative Narrative: Patient presents with dizziness that began today. Patient states it began rather suddenly. Patient describes it as a spinning sensation. Patient states that it has been intermittent. Patient states that when he got here it started to feel better. Patient states it was worse with standing and walking. Patient states he got better when he sat down. Patient denies any fevers or chills. Patient denies any changes in his hearing or tinnitus. Patient denies any chest pain or shortness of breath. Patient does admit to some intermittent tingling in his left arm and leg. Patient states this has resolved at the present time. Patient states he has a family history of strokes and he is concerned that this could be a stroke. [facility] Medical History no medical history no medical history Home Medications ?Medication ?Instructions ?Recorded ?Last Taken ?Type metaxalone 800 mg tablet 800 mg PO TID PRN muscle pain 7 12/12/22 Unknown Rx days #21 tabs Allergy/AdvReac Type Severity Reaction Status Date / Time No Known Allergies Allergy Verified 11/29/23 12:13 Family History Mother Hypertension Mother CVA (cerebral vascular accident) Surgical History History of facial surgery Social History Smoking Status: Never smoker ROS ROS ED Constitutional Constitutional ED: Denies chills or fever(s) Eyes Eyes: Denies blurry vision or change in vision ENT ENT ED: Denies rhinorrhea or sore throat Cardiovascular Cardiovascular: Denies chest pain or palpitations Respiratory/Chest Respiratory/Chest: Denies cough or dyspnea Gastrointestinal Gastrointestinal: Reports nausea; Denies vomiting Genitourinary Genitourinary ED: Denies dysuria or hematuria Musculoskeletal Musculoskeletal: Denies back pain or neck pain Integumentary Denies abscess or rash Neurologic Neurologic: Reports paresthesias LUE and LLE; Denies headache(s) or weakness Allergic/Immunologic Allergic/Immunologic ED: Denies mouth swelling or urticaria EXAM Physical Exam Const Vital Signs: 11/29/23 12:13 11/29/23 14:05 11/29/23 15:47 Temperature 98 F Temperature Source Temporal Pulse Rate 91 79 Pulse Rate [Lying] 72 Pulse Rate [Sitting (for 1 minute prior to obtaining)] 74 Pulse Rate [Standing (for 1 minute prior to obtaining)] 79 Respiratory Rate 16 20 H Blood Pressure 165/86 H 136/84 H Blood Pressure [Lying] 134/76 H Blood Pressure [Sitting (for 1 minute prior to obtaining)] 138/83 H Blood Pressure [Standing (for 1 minute prior to obtaining)] 123/90 H Blood Pressure Mean 112 101 Blood Pressure Mean [Lying] 95 Blood Pressure Mean [Sitting (for 1 minute prior to obtaining)] 101 Blood Pressure Mean [Standing (for 1 minute prior to obtaining)] 101 Pulse Ox 97 96 Oxygen Delivery Method Room Air Room Air 11/29/23 16:00 Temperature Temperature Source Pulse Rate 74 Pulse Rate [Lying] Pulse Rate [Sitting (for 1 minute prior to obtaining)] Pulse Rate [Standing (for 1 minute prior to obtaining)] Respiratory Rate 23 H Blood Pressure 141/77 H Blood Pressure [Lying] Blood Pressure [Sitting (for 1 minute prior to obtaining)] Blood Pressure [Standing (for 1 minute prior to obtaining)] Blood Pressure Mean 98 Blood Pressure Mean [Lying] Blood Pressure Mean [Sitting (for 1 minute prior to obtaining)] Blood Pressure Mean [Standing (for 1 minute prior to obtaining)] Pulse Ox 96 Oxygen Delivery Method Room Air Positive well nourished and well developed General Appearance ED: well developed and NAD HEENT Reports moist mucous membranes Eyes PERRL and EOMs intact bilaterally Eyes Narrative: There is no nystagmus noted Neck supple and no JVD Resp normal respiratory effort and clear to auscultation bilaterally Cardio regular rate and regular rhythm GI non-tender and non-distended Palpation: soft Extremity normal to inspection General Extremety ED: Negative for edema or tenderness General Extremity: Negative for edema Neuro oriented x3, CN's II-XII intact bilaterally and no sensory deficits noted Sensorium / Orientation: alert Motor Exam: strength 5/5 throughout Psych mental status grossly normal MDM MDM MDM Narrative Medical decision making narrative: Differential diagnosis includes labyrinthitis, vertigo, intracranial bleeding, stroke, dehydration, and electrolyte abnormality. CBC will be obtained to assess for anemia and leukocytosis. Basic metabolic profile will be obtained to assess for electrolyte abnormality and renal function. CT scan of the brain will be obtained to assess for intracranial bleeding and stroke. Lab Data Attestation: I reviewed the patient's lab results. Lab results narrative: CBC was reviewed and was within normal limits. Basic metabolic profile was reviewed and was within normal limits. Labs: Laboratory Results - last 24 hr 11/29/23 13:20 WBC 9.6 RBC 5.33 Hgb 15.2 Hct 46.1 MCV 86.5 MCH 28.5 MCHC 33.0 RDW Std Deviation 40.9 RDW Coeff of Lexi 13.2 Plt Count 346 MPV 9.9 Immature Gran % (Auto) 0.300 Neut % (Auto) 67.6 Lymph % (Auto) 24.7 [place] % (Auto) 4.7 Eos % (Auto) 1.8 Baso % (Auto) 0.9 Absolute Neuts (auto) 6.5 Absolute Lymphs (auto) 2.38 Nucleated RBC % 0 Sodium 142 Potassium 3.9 Chloride 107 Carbon Dioxide 30.0 Anion Gap 5 BUN 15 Creatinine 1.19 Estim Creat Clear Calc 123.18 Est GFR (MDRD) Af Amer 89 Est GFR (MDRD) Non-Af 73 BUN/Creatinine Ratio 12.6 Glucose 99 Calcium 9.2 Radiography Diagnostic Testing: Clinical Impression(s) from Imaging Studies Brain CT 11/29/23 14:07 IMPRESSION: Normal unenhanced CT scan of the brain. Electronically Signed: Adonis Dasilva MD at 15:22 EDT , CT scan of the brain was obtained. There is no acute intracranial abnormality. This was interpreted by the radiologist and was also independently reviewed by myself. Treatment and Re-Evaluation :: Patient was given IV fluids. Orthostatic vital signs were obtained and were within normal limits. Patient was advised of his findings. Patient was advised that this could be vertigo. The patient was instructed to follow-up with his primary care physician in 5 to 7 days for further evaluation. Patient was advised that his paresthesias may need further testing. Patient understands and is agreeable with the plan. All questions were answered. Discharge Plan Triage Chief Complaint: Dizziness ED Provider: Mau Glez Dx/Rx/DC Orders Clinical Impression: Vertigo, Paresthesias Instructions: ED Vertigo, Unspecified, ED Paraesthesias Prescriptions: No Action metaxalone 800 mg tablet 800 mg PO TID PRN (Reason: muscle pain) 7 Days Qty: 21 0RF Primary Care Provider: Adolfo Lara Referrals: Adolfo Lara MD [Primary Care Provider] - Print Language: Romanian Disposition Disposition: Home, Self Care
[2023-11-29 14:05] VITALS: BP 136/84; PULSE 79; RESP 20; O2SAT 96
--- NOTE | 2023-11-29 14:07 | CT_ITS ---
STUDY: CT BRAIN WITHOUT CONTRAST REASON FOR EXAM: Male, 38 years old. Dizziness RADIATION DOSAGE (If Supplied By Facility): CTDIvol = ( 44.99 ) mGy, DLP = ( 823.11 ) mGycm TECHNIQUE: Transaxial CT imaging of the brain was performed without administration of intravenous contrast material. Individualized dose optimization techniques were used for this CT. COMPARISON: Comparison is made with prior study dated September 06, 2022. FINDINGS: Normal soft tissue structures. Normal calvarium. Normal size ventricles and extra-axial spaces for the patient''s age. Normal white matter tracts of the cerebral hemispheres. Normal basal ganglia and thalami. Normal brainstem. Normal cerebellum. There is no intracranial hemorrhage. There are no findings of an acute ischemic infarction. Normal visualized paranasal sinuses. CT/Brain/Head without Contrast IMPRESSION: Normal unenhanced CT scan of the brain. Electronically Signed: Adonis Dasilva MD at 15:22 EDT ,
[2023-11-29 14:17] LABS: Absolute Lymphocyte Count 2.38 X10^3/uL (0.83-4.51); Absolute Neutrophil Count 6.5 X10^3/uL (2.0-7.7); Basophil# 0.09 X10^3/uL; Basophil% 0.9 % (0-1); Eosinophil# 0.17 X10^3/uL; Eosinophils% 1.8 % (0-5); Hematocrit 46.1 % (40-54); Hemoglobin 15.2 g/dL (13.0-16.5); Lymphocyte # 2.38 X10^3/ul (0.83-4.51); Lymphocyte % 24.7 % (19-41); Mean Corpuscular Hgb 28.5 pg (27.0-32.0); Mean Corpuscular Volume 86.5 fL (80-94); Mean Platelet Vol. 9.9 fl (6.2-12.0); Monocyte# 0.45 X10^3/uL; Monocyte% 4.7 % (0-10); NRBC Flagged by Analyzer 0 % (0-5); Neutrophil # 6.51 X10^3/uL (2.7-7.7); Neutrophil % 67.6 % (47-70); Platelet Count 346 K/mm3 (150-450); RBC Distribution Width CV 13.2 % (11.6-14.6); RBC Distribution Width SD 40.9 fl (35.1-43.9); Red Blood Count 5.33 M/mm3 (4.6-6.2); White Blood Count 9.6 K/mm3 (4.4-11.0)
[2023-11-29] MEDS: 0.9% Normal Saline (1000mL) 1,000 ML 1000 ML IV (14:17)
[2023-11-29 14:31] LABS: Anion Gap 5 (5-15); BUN 15 mg/dL (7-18); BUN/Creat Ratio 12.6 RATIO (10-20); Calcium,Total 9.2 mg/dL (8.5-10.1); Chloride 107 mmol/L (98-107); Creatinine, Serum 1.19 mg/dL (0.70-1.30); EST Glomerular Filtration Rate 73 mL/min (>60); Est Glom Filt Rate - Afr Amer 89 mL/min (>60); Estimated Creatinine Clearance 123.18 ml/min; Glucose 99 mg/dL (74-106); Potassium 3.9 mmol/L (3.5-5.1); Sodium Level 142 mmol/L (136-145)
[2023-11-29 15:47] VITALS: BP 123/90; BP 134/76; BP 138/83; PULSE 72; PULSE 74; PULSE 79
[2023-11-29 16:00] VITALS: BP 141/77; PULSE 74; RESP 23; O2SAT 96
[2023-11-29 16:42] VITALS: BP 137/73; PULSE 70; RESP 15; TEMP 37; O2SAT 99
== END 2023-11-29 16:48 | disposition home or self-care (01) ==
PROVIDERS: Emergency Provider Emergency Medicine; PCP Family Medicine; Visit Provider Emergency Medicine
DX: R42 Dizziness and giddiness (principal); R20.2 Paresthesia of skin; R11.0 Nausea; Z11.52 Encounter for screening for COVID-19; Z79.899 Other long term (current) drug therapy
CPT/HCPCS: 70450; 80048; 85025; 87631; 96360; 99285; J7030; A4216